=== PATIENT | female | born 1970 | race Caucasian/White ===

== ENCOUNTER 2017-06-13 11:41 | Emergency (ER) | payer OTHER, MEDICAID ==
[~2017-06-13] VITALS: Ht 162.6 cm; Wt 75.3 kg
[2017-06-13 11:41] VITALS: BP 130/87
[2017-06-13] MEDS ORDERED: KETOROLAC TROMETHAMINE INJ 60 MG/2 ML VIAL IM STA (12:14)
[2017-06-13] MEDS ORDERED: KETOROLAC TROMETHAMINE INJ 60 MG/2 ML VIAL IM ONE (12:17)
== END 2017-06-13 13:53 | disposition home or self-care (01) ==
LOC: ER 11:44
DX: M25.512 Pain in left shoulder (principal); I10 Essential (primary) hypertension; M19.90 Unspecified osteoarthritis, unspecified site; Z41.1 Encounter for cosmetic surgery; Z98.890 Other specified postprocedural states
CPT/HCPCS: 73030; 96372; 99284; A4606 ×2; J1885; Z7610 ×2